=== PATIENT | male | born 1990 | race Caucasian/White ===

== ENCOUNTER 2023-08-12 09:01 | Emergency (ER) | payer OTHER, SELFPAY ==
[2023-08-12 09:04] VITALS: BP 145/100; PULSE 76; RESP 17; TEMP 36.8; O2SAT 98; BMI 23.7
--- NOTE | 2023-08-12 09:06 | HMH.EDGENADL ---
Discharge Plan Disposition Patient Disposition: Home, Self-Care Condition: Good Prescriptions Prescriptions: New doxycycline hyclate 100 mg capsule 100 mg PO BID 14 Days Qty: 28 0RF Referrals Follow up/Referrals: Austin Phillips DO [Staff Physician] - See instructions Provider,Referral, [Primary Care Provider] - See instructions Activity Restrictions/Add. Instructions Additional Instructions/Restrictions: Please follow-up with orthopedic doctor. Please take the antibiotics as directed. Please return with any new or worsening symptoms, particularly worsening pain, fever, pain elsewhere Clinical Impressions Clinical Impression: Cellulitis Qualifiers: Site of cellulitis: extremity Site of cellulitis of extremity: upper extremity Laterality: left Qualified Code(s): L03.114 - Cellulitis of left upper limb Stand Alone Forms Stand Alone Forms: Work/School Release Instructions Patient Instructions: DI for Skin Abscess Discharge ED Provider: Jagdeep Sargent General Adult HPI General Chief complaint: Skin/Abscess/Foreign Body Stated complaint: knot on lt elbow Time Seen by Provider: 08/12/23 09:06 History of Present Illness HPI narrative: The patient presents with a chief complaint of sudden onset elbow pain and swelling that started last night. They report initially noticing what seemed to be a pimple with a white head on the elbow. After squeezing it, yellow discharge was released. The patient woke up at 3:00 AM with significant arm swelling and throbbing pain. They deny any fever or chills but mention a similar spot on their back that swelled up, became tight, and also had discharge. This type of issue has not been experienced by the patient before. The pain is described as severe, and the patient states that it feels like their hand is going to sleep, accompanied by sensations of numbness and tingling. The patient denies any known medical conditions or regular medications. There is no recent history of elbow injuries reported, but the patient does mention a history of MRSA in their early teens. Related Data Previous Rx's Medication Instructions Recorded doxycycline hyclate 100 mg capsule 100 mg PO BID 14 days #28 caps 08/12/23 Allergies Allergy/AdvReac Type Severity Reaction Status Date / Time Penicillins [PENICILLINS] Allergy Unknown Verified 08/12/23 10:45 [facility] Disclaimer: The information contained in this section may have been updated after the patient was seen, as this information can be updated by other users. Social History Smoking Status: Current every day smoker alcohol intake: current current occupational status: employed Travel in the last 8 weeks: None ROS Obtained: Yes Systems reviewed as appropriate & no additional complaints except as documented As per HPI Physical Exam General General appearance: alert and in no apparent distress Head Head exam: atraumatic and normocephalic Eye Eye exam: Present normal appearance Neck Neck exam: Present normal inspection Chest Chest inspection: Present normal inspection and symmetric chest wall rise Respiratory Respiratory exam: Present normal lung sounds bilaterally; Absent respiratory distress Cardiovascular Cardiovascular exam: Present regular rate and normal rhythm Abdominal Exam Abdominal exam: Present soft Extremities Exam Extremities exam: Present other (Left elbow swelling, two 1/2 cm areas of erythema where patient pointed out preceding pimple-like lesion, range of motion within normal limits, distally neurovascularly intact however some transient paresthesias throughout forearm and hand, patient describes as positional) Neurological Exam Neurological exam: Present alert and oriented X3 Psychiatric Psychiatric exam: Present normal affect and normal mood Skin Skin exam: Present warm and dry Medical Decision Making Medical Records Medical records reviewed: Yes I reviewed the patient's medical records. Micheal
--- NOTE | 2023-08-12 10:09 | PC.NURSE ---
DR SIMON AT BEDSIDE
[2023-08-12 11:33] LABS: Basophils % 0.2 % (0.1-2.0); Eosinophils # 0.1 K/mm3 (0.0-0.4); Eosinophils % 0.7 % (0.1-12.0); Hematocrit 42.4 % (42.0-52.0); Lymphocytes # 1.8 K/mm3 (0.7-4.5); Lymphocytes % 17.1 % (10-50); Mean Corpuscular HGB Conc 33.2 g/dL (31.8-35.4); Mean Corpuscular Hemoglobin 31.6 pg (27.0-31.2); Mean Corpuscular Volume 95.4 fl (80-94); Mean Platelet Volume 8.7 fl (7.4-10.4); Monocytes # 0.5 K/mm3 (0.1-1.0); Monocytes % 5.1 % (1.7-9.3); Neutrophils % 76.8 % (37.0-80.0); Platelet Count 258 K/mm3 (142-424); Red Blood Count 4.44 M/mm3 (4.60-6.20); Red Cell Distribution Width 12.2 % (11.5-17.5); White Blood Count 10.4 K/mm3 (4.8-10.8)
[2023-08-12 11:44] LABS: C-Reactive Protein 1.1 mg/L (0-4)
[2023-08-12 12:19] LABS: Erythrocyte Sedimentation Rate 18 mm/hr (0-15)
[2023-08-12 13:11] VITALS: BP 145/100; PULSE 76; RESP 17; TEMP 36.8; O2SAT 98
[2023-08-18 21:22] LABS: Clarity,Fluid Hazy; Color,Fluid Yellow; Lymphocytes,Fluid 28; Macrophages,Fluid 48; Nucleated cells, Syn. Fluid 14074; Polys,Fluid 24; RBC,Fluid 7000
[2023-08-18 21:23] LABS: Eosinophils,Fluid 0
--- NOTE | 2023-08-19 09:43 | PC.NURSE ---
Body fluid resuls show Methicillin Resistant Staph aureus, pt DC on doxycycline, Dr. Merchant aware, no further action.
== END 2023-08-12 13:12 | disposition home or self-care (01) ==
PROVIDERS: Emergency Provider Emergency Medicine
DX: M25.422 Effusion, left elbow (principal); B95.62 Methicillin resistant Staphylococcus aureus infection as the cause of diseases classified elsewhere; L03.114 Cellulitis of left upper limb; F17.210 Nicotine dependence, cigarettes, uncomplicated; M25.522 Pain in left elbow
CPT/HCPCS: 10060; 85025; 85651; 86140; 87040; 87070; 87205; 89051; 99283

== ENCOUNTER 2023-08-14 03:59 | Emergency (ER) | payer OTHER, SELFPAY ==
[2023-08-14 04:01] VITALS: BP 126/82; PULSE 90; RESP 18; TEMP 36.6; O2SAT 98; BMI 22.4
--- NOTE | 2023-08-14 04:09 | XR_ITS ---
PROCEDURE INFORMATION: Exam: XR Left Elbow Exam date and time: 08/14/2023 4:34 AM Age: 33 years old Clinical indication: Pain; Swelling; Elbow; Left; Additional info: Swelling, redness, pain TECHNIQUE: Imaging protocol: Radiologic exam of the left elbow. Views: 3 or more views. COMPARISON: No relevant prior studies available. FINDINGS: Bones/joints: No acute fracture. No dislocation. No definite cortical destruction. No significant joint effusion. Soft tissues: Soft tissue swelling. IMPRESSION: Soft tissue swelling. Clinical correlation is needed.
--- NOTE | 2023-08-14 04:12 | HMH.EDGENADL ---
Discharge Plan Disposition Patient Disposition: Home, Self-Care Condition: Good Prescriptions Prescriptions: No Action doxycycline hyclate 100 mg capsule 100 mg PO BID 14 Days Qty: 28 0RF Referrals Follow up/Referrals: Austin Phillips DO [Staff Physician] - See instructions Provider,Referral, [Primary Care Provider] - See instructions Activity Restrictions/Add. Instructions Additional Instructions/Restrictions: You were evaluated in the emergency department today. You were given IV antibiotics here. Stop taking your oral antibiotics at home. Please follow-up with orthopedics as well as your primary care provider for further evaluation and management. You will need to call Dr. Phillips's office to schedule an appointment. Take Tylenol and ibuprofen at home as needed for pain. Return to the emergency department for new or worsening symptoms. Clinical Impressions Clinical Impression: Cellulitis of left elbow Stand Alone Forms Stand Alone Forms: Work/School Release Instructions Patient Instructions: DI for Cellulitis -- Adult, DI for Elbow Bursitis Discharge ED Provider: Sammi Merchant General Adult HPI General Chief complaint: Skin/Abscess/Foreign Body Stated complaint: Left elbow red,swollen with knot Time Seen by Provider: 08/14/23 04:09 History of Present Illness HPI narrative: This patient is a 33-year-old male presented to the emergency department for evaluation with concern for swelling, redness, and pain to his left elbow. He notes that he was evaluated here 2 days ago for similar symptoms, at which point he was diagnosed with cellulitis. Aspiration of fluid adjacent to the left elbow joint was performed which is still pending at this time. Per documentation in medical record, the patient had intact range of motion and concern for septic arthritis was low. Patient was discharged with prescription for doxycycline and instructions for orthopedics follow-up. He notes that he has had 2 doses of doxycycline, but the redness, pain, and warmth have increased. No systemic symptoms, such as fevers, nausea, vomiting, or other concerns noted. He does still have intact range of motion of his left elbow, though it is slightly painful. Related Data Previous Rx's Medication Instructions Recorded doxycycline hyclate 100 mg capsule 100 mg PO BID 14 days #28 caps 08/12/23 Allergies Allergy/AdvReac Type Severity Reaction Status Date / Time Penicillins [PENICILLINS] Allergy Unknown Verified 08/12/23 10:45 [facility] Disclaimer: The information contained in this section may have been updated after the patient was seen, as this information can be updated by other users. Social History Smoking Status: Current every day smoker alcohol intake: current current occupational status: employed Travel in the last 8 weeks: None ROS Obtained: Yes All systems reviewed & no additional complaints except as documented Physical Exam General General appearance: alert and in no apparent distress Head Head exam: atraumatic and normocephalic Eye Eye exam: Present normal appearance, PERRL and EOMI ENT ENT exam: Present normal exam, normal oropharynx, mucous membranes moist and normal external ear exam Neck Neck exam: Present normal inspection, full ROM and trachea midline; Absent tenderness Chest Chest inspection: Present normal inspection and symmetric chest wall rise; Absent tenderness Respiratory Respiratory exam: Present normal lung sounds bilaterally; Absent respiratory distress, wheezes, stridor or accessory muscle use Cardiovascular Cardiovascular exam: Present regular rate and normal rhythm Abdominal Exam Abdominal exam: Present soft; Absent distention, tenderness or guarding Extremities Exam Extremities exam: Present full ROM, tenderness, normal capillary refill, joint swelling and other (Swelling, erythema, and warmth to posterior aspect of the left
[2023-08-14 04:21] LABS: Basophils % 0.4 % (0.1-2.0); Eosinophils # 0.2 K/mm3 (0.0-0.4); Eosinophils % 2.2 % (0.1-12.0); Hematocrit 39.7 % (42.0-52.0); Hemoglobin 13.2 g/dL (14.1-18.0); Lymphocytes # 2.3 K/mm3 (0.7-4.5); Lymphocytes % 25.2 % (10-50); Mean Corpuscular HGB Conc 33.3 g/dL (31.8-35.4); Mean Corpuscular Hemoglobin 31.4 pg (27.0-31.2); Mean Corpuscular Volume 94.1 fl (80-94); Mean Platelet Volume 8.7 fl (7.4-10.4); Monocytes # 0.6 K/mm3 (0.1-1.0); Monocytes % 5.9 % (1.7-9.3); Neutrophils # 6.1 K/mm3 (1.8-7.8); Neutrophils % 66.3 % (37.0-80.0); Platelet Count 243 K/mm3 (142-424); Red Blood Count 4.22 M/mm3 (4.60-6.20); Red Cell Distribution Width 12.2 % (11.5-17.5); White Blood Count 9.3 K/mm3 (4.8-10.8)
[2023-08-14 04:24] LABS: Chloride 101 mmol/L (98-107); Sodium 138 mmol/L (136-145)
[2023-08-14 04:25] LABS: Potassium 3.7 mmoL/L (3.5-5.1)
[2023-08-14 04:27] LABS: Alanine Aminotransferase 34 U/L (12-78); Alkaline Phosphatase 49 U/L (38-126); Aspartate Amino Transferase 33 U/L (17-59); Bilirubin,Total 0.4 mg/dl (0.2-1.3); Blood Urea Nitrogen 18 mg/dl (9-20); Creatinine Clearance Estimated 127 mL/min (50-200); Estimated Glomerular Filt Rate 97 ml/min (>60); GFR (African American) 118 ML/MIN (>60)
[2023-08-14 04:28] LABS: Albumin Level 4.4 g/dl (3.5-5.0); Albumin/Globulin Ratio 1.4 (1.1-1.8); Anion Gap 5.7 mEq/L (5-15); Carbon Dioxide 35 mmol/L (22.0-30.0); Globulin 3.1 g/dL (1.3-3.2); Glucose 100 mg/dl (74-100); Total Protein,Serum 7.5 g/dl (6.3-8.2)
[2023-08-14 04:33] LABS: C-Reactive Protein 33.5 mg/L (0-4)
[2023-08-14 04:57] LABS: Erythrocyte Sedimentation Rate 19 mm/hr (0-15)
[2023-08-14 06:16] VITALS: BP 120/70; PULSE 89; RESP 16; TEMP 36.7; O2SAT 100
--- NOTE | 2023-08-16 14:06 | PC.NURSE ---
[id number] PRELIMINARY RECEIVED FROM [facility] IN LAB, UPDATED DR IRWIN. [id number] ATTEMPTED TO CALL PT AND FOLLOW-UP, NO ANSWER. MESSAGE LEFT
--- NOTE | 2023-08-16 16:41 | PC.NURSE ---
PT RETURNED CALL, REPORTS IT'S SPREADING DOWN MY ARM. PT INSTRUCTED TO RETURN TO ED FOR FURTHER EVALUATION
== END 2023-08-14 06:18 | disposition home or self-care (01) ==
PROVIDERS: Emergency Provider Emergency Medicine
DX: L03.114 Cellulitis of left upper limb (principal); M25.522 Pain in left elbow; F17.210 Nicotine dependence, cigarettes, uncomplicated
CPT/HCPCS: 73080; 80053; 85025; 85651; 86140; 96374; 99284; J0875

== ENCOUNTER 2024-05-07 15:58 | Outpatient (CLI) | payer OTHER, SELFPAY ==
[2024-05-17 12:40] LABS: Miscellaneous Test SCANNED IMAGE
== END 2024-05-07 23:59 | disposition home or self-care (01) ==
LOC: LAB 16:00
PROVIDERS: PCP Nurse Practitioner Family; Visit Provider Anesthesiology
DX: Z02.9 Encounter for administrative examinations, unspecified (principal)

== ENCOUNTER 2024-11-06 18:22 | Emergency (ER) | payer OTHER, SELFPAY ==
[2024-11-06 18:30] VITALS: BP 142/90; PULSE 90; RESP 20; TEMP 37.3; O2SAT 97; BMI 21.7
[2024-11-06] MEDS: ONDANSETRON 4MG/2ML VIAL 4 MG IV (18:57)
[2024-11-06] MEDS: ACETAMINOPHEN 1,000MG/100ML VIAL 1000 MG IV (18:57)
[2024-11-06] MEDS: 0.9 % SODIUM CHLORIDE 1000ML 1,000 ML 999 ML IV (18:58)
--- NOTE | 2024-11-06 18:58 | ED_ITS ---
<Statement entered by Jeannette Arnold MD - 11/06/24 23:04> I was consulted by the FATOU, and we discussed the complexity of the problems being addressed. I approved the treatment and management plan for this patient's care in the emergency department, thus performing a substantive portion of the medical decision making. Jeannette Arnold MD, GALILEO, FACEP Discharge Plan Disposition Patient Disposition: Home, Self-Care Condition: Good Prescriptions Prescriptions: New ondansetron HCl 4 mg tablet 4 mg PO Q8H PRN (Reason: nausea and vomiting) 5 Days Qty: 30 0RF promethazine-DM 6.25-15 mg/5 mL syrup 5 ml PO Q6H PRN (Reason: cough) Qty: 118 0RF Referrals Follow up/Referrals: Elver Salomon APRN [Primary Care Provider] - See instructions Activity Restrictions/Add. Instructions Additional Instructions/Restrictions: Increased within rest. Take Tylenol and ibuprofen for pain and fevers. Take medications as directed for nausea and cough. Please follow with PCP this week. Clinical Impressions Clinical Impression: Viral infection, Influenza Instructions Patient Instructions: DI for Influenza -- Adult Print Language Print Language: Hebrew Discharge ED Provider: Jeannette Arnold General Adult HPI General Chief complaint: Fever Stated complaint: fever,congestion,weakness Time Seen by Provider: 11/06/24 18:36 Mode of Arrival: Family Vehicle Source of Information: Patient and Significant Other Limitations: No Limitations Description of Symptoms (Recalled from ER Triage Doc. by RN): Pt c/o flu-like symptoms that began mildly last night and full blown this AM. States he has a burning cough , body aches, fever (t max 102), chills, nausea, and fatigue. Denies any SOA or chest pain. History of Present Illness HPI narrative: This is a 34-year-old male who presents to the ED today for complaint of flulike symptoms that began last night but worsened this morning. He has a cough, body aches, fever, chills, nausea but no vomiting and fatigue. Significant other is in the room and says that he had a temperature of 102.2 prior to arrival to the ED. She has given him Benadryl, Tylenol for fever. Related Data Previous Rx's ?Medication ?Instructions ?Recorded ondansetron HCl 4 mg tablet 4 mg PO Q8H PRN nausea and 11/06/24 vomiting 5 days #30 tabs promethazine-DM 6.25 mg-15 mg/5 mL 5 ml PO Q6H PRN cough #118 mL 11/06/24 oral syrup Allergies Allergy/AdvReac Type Severity Reaction Status Date / Time Penicillins (PENICILLINS) Allergy Unknown Verified 08/12/23 10:45 [facility] Disclaimer: The information contained in this section may have been updated after the patient was seen, as this information can be updated by other users. Social History Smoking Status: Current every day smoker alcohol intake: current current occupational status: employed Travel in the last 8 weeks: None Have you lived/traveled outside [place] in past 30 days?: No Contact w/someone who lives/traveled outside [place] past 30 days?: No Exposure to someone with infectious disease in past 14 days?: No Do you have a fever (greater than 100.4 F or 38 C)?: Yes Have you tested positive for COVID-19: No Exposed to someone with COVID-19 in past 14 days?: No Do you have a sore throat?: No Do you have a cough?: No Do you have any weakness?: Yes Do you have any diarrhea?: No Are you experiencing any unusual bleeding?: No Do you have any muscle aches/pain?: No Do you have any abdominal pain?: No Are you experiencing loss of taste or smell?: No ROS Obtained: Yes Systems reviewed as appropriate & no additional complaints except as documented Constitutional Constitutional: Reports as per HPI Physical Exam General General appearance: alert Head Head exam: atraumatic and normocephalic Eye Eye exam: Present PERRL and EOMI ENT ENT exam: Present normal oropharynx Neck Neck exam: Present full ROM and trachea midline Respiratory Respiratory exam: Present normal lung sounds bilaterally Cardiovascular Cardiovascular exam: Present regular rate, normal rhythm, normal heart sounds, +S1 and +S2 Abdominal Exam Abdominal exam: Present soft and normal bowel sounds Extremities Exam Extremities exam: Present full ROM and normal capillary refill Back Exam Back exam: Present normal inspection Neurological Exam Neurological exam: Present alert, oriented X3 and normal gait Skin Skin exam: Present warm, dry and intact Medical Decision Making Medical Records Screening: Per USPSTF and CDC recommendations, given the prevalence of disease in our region, it is our hospital?s policy to screen for HIV and viral Hepatitis for all patients aged 18 and over and those with ongoing risk factors. Micheal Inquiry Pt receiving controlled substance: No Micheal was queried for this patient: No Vital Signs: 11/06/24 18:30 Temperature 99.2 F Temperature Source Oral Pulse Rate [Right] 90 Respiratory Rate 20 Blood Pressure [Right Arm] 142/90 H Blood Pressure Mean [Right Arm] 107 Blood Pressure Source [Right Arm] Automatic Cuff 02 Sat by Pulse Oximetry 97 Oxygen Delivery Method Room Air Lab Data Lab Results 11/06/24 18:54: HCV Ab NATHALY w/Rflx PCR Qn Reactive, HIV Ag/Ab Combo Qual Negative 11/06/24 19:00: SARS-CoV-2 (PCR) Not detected, Influenza A Untype (PCR) Detected A, Influenza Type B (PCR) Not detected Orders (Tests/Meds): ED MEDICATIONS Discontinued Medications Generic Name Dose Route Start Last Admin Trade Name Freq PRN Reason Stop Dose Admin Acetaminophen 1,000 mg 11/06/24 18:41 11/06/24 18:57 Acetaminophen 1,000mg/100ml Vial IV 11/06/24 18:42 1,000 mg ONCE ONE Administration Sodium Chloride 1,000 mls @ 999 mls/hr 11/06/24 18:41 11/06/24 18:58 Sod Chlor 0.9% 1000ml Bag IV 11/06/24 19:41 999 mls/hr .Q1H1M ONE Administration Ondansetron HCl 4 mg 11/06/24 18:41 11/06/24 18:57 Ondansetron 4mg/2ml Vial IV 11/06/24 18:42 4 mg ONCE ONE Administration ORDERS Category Date Time Status HCV RNA PCR, Quant Stat Lab 11/06/24 18:54 Received HIV Combo Stat Lab 11/06/24 18:54 Completed Hepatitis C Ab Qual. W/ RFX Stat Lab 11/06/24 18:54 Completed Rapid PCR Covid and Flu A/B Stat Lab 11/06/24 19:00 Completed Medical Decision Narrative: Insert review patient is a 34-year-old male presenting to the emergency department for evaluation of throat pain, congestion, body aches and fever 102.2 prior to arrival. Patient has had bodyaches and fever since this morning. Patient is hemodynamically stable and appears to feel unwell with a low-grade temp at 99.2 upon arrival. Differential diagnosis includes viral illness, flu, COVID, among others. Workup will be conducted with COVID and flu swab as his clinical picture appears to be flu or viral in nature. Initial inventions include IV fluids and IV Tylenol for patient's symptoms. Initial workup reviewed by me is remarkable for the flu. Patient appears improved after IV Tylenol and fluids. Patient has been given discharge instructions and is safe for discharge home. Critical Care Critical Care Time Critical Care Time: No
[2024-11-06 19:06] LABS: Coronavirus 19, PCR Not Detected (NotDetected); Influenza B, PCR Not Detected (NotDetected)
[2024-11-06 19:31] LABS: Influenza A, PCR Detected (NotDetected)
[2024-11-06 20:07] LABS: HIV Combo NEGATIVE (Negative)
[2024-11-06 20:16] LABS: Hepatitis C Ab Qual. W/ RFX REACTIVE (Negative)
[2024-11-06 20:46] VITALS: BP 135/83; PULSE 75; RESP 17; TEMP 37.7; O2SAT 93
== END 2024-11-06 20:47 | disposition home or self-care (01) ==
PROVIDERS: Nurse Practitioner; Emergency Provider Student in an Organized Health Care Education/Training Program; PCP Nurse Practitioner Family
DX: J11.1 Influenza due to unidentified influenza virus with other respiratory manifestations (principal); B34.9 Viral infection, unspecified; R50.9 Fever, unspecified; R05.9 Cough, unspecified; M79.10 Myalgia, unspecified site; R11.0 Nausea; R53.83 Other fatigue; Z72.0 Tobacco use
CPT/HCPCS: 86803; 87389; 87522; 87636; 96361; 96374; 96375; 99283; J0131; J2405; J7030

== ENCOUNTER 2024-12-28 19:36 | Emergency (ER) | payer BC, SELFPAY ==
--- NOTE | 2024-12-28 21:59 | ED_ITS ---
<Statement entered by Sammi Merchant DO - 12/28/24 23:46> I was consulted by the FATOU, and we discussed the complexity of the problems being addressed. I approved the treatment and management plan for this patient's care in the emergency department, thus performing a substantive portion of the medical decision making. Patient agreeable to follow-up very closely with ophthalmology in 24 hours given residual rust ring. Procedure: After informed consent, anesthetized the eye with tetracaine and removed metallic foreign body with a blunt tipped needle. I attempted removal of residual rust ring, however was unsuccessful. Patient tolerated this well with no immediate complication. Sammi Merchant DO Discharge Plan Disposition Patient Disposition: Home, Self-Care Chief Complaint: Eye Problems Prescriptions Prescriptions: No Action ondansetron HCl 4 mg tablet 4 mg PO Q8H PRN (Reason: nausea and vomiting) 5 Days Qty: 30 0RF promethazine-DM 6.25-15 mg/5 mL syrup 5 ml PO Q6H PRN (Reason: cough) Qty: 118 0RF Referrals Follow up/Referrals: Elver Salomon APRN [Primary Care Provider] - See instructions Hardeep Bullock OD [Referring] - See instructions Activity Restrictions/Add. Instructions Additional Instructions/Restrictions: Please follow-up with eye doctor in the upcoming days, please utilize ophthalmic solution/cream 4 times daily for 5 days or until eye doctor follow-up. Please return to the emergency department any worsening signs or symptoms to include decreased vision. Clinical Impressions Clinical Impression: Metal foreign body in eye region, Corneal rust ring of left eye Instructions Patient Instructions: DI for Corneal Abrasion Print Language Print Language: Japanese Discharge ED Provider: Sammi Merchant General Adult HPI General Stated complaint: AO 12/28/24 FB in left eye Time Seen by Provider: 12/28/24 21:17 Mode of Arrival: Ambulatory Source of Information: Patient Limitations: No Limitations History of Present Illness HPI narrative: 34-year-old male presents to the emergency department with a foreign body in the left eye, patient states approximately 2 hours ago he was working on his truck , when he felt a piece of metal going to his eye, he denies any visual disturbance or decrease in visual acuity. He endorses irritation redness and tearing, denies any real overt pain. Denies any light sensitivity,, denies any headache fever chills chest pain shortness of breath nausea vomiting, abdominal pain constipation diarrhea, patient has no other real relevant past medical history except for current everyday smoking, occasional alcohol use, and curre ntly on Suboxone therapy, denies any drug use. Initial triage vitals are grossly unremarkable. Of note patient does not wear contacts. Onset (ago): hour(s) Related Data Previous Rx's ?Medication ?Instructions ?Recorded ondansetron HCl 4 mg tablet 4 mg PO Q8H PRN nausea and 11/06/24 vomiting 5 days #30 tabs promethazine-DM 6.25 mg-15 mg/5 mL 5 ml PO Q6H PRN cough #118 mL 11/06/24 oral syrup Allergies Allergy/AdvReac Type Severity Reaction Status Date / Time Penicillins (PENICILLINS) Allergy Unknown Verified 08/12/23 10:45 [facility] Disclaimer: The information contained in this section may have been updated after the patient was seen, as this information can be updated by other users. Social History Smoking Status: Unknown if ever smoked alcohol intake: current current occupational status: employed Travel in the last 8 weeks: None ROS Obtained: Yes All systems reviewed & no additional complaints except as documented Physical Exam General General appearance: alert and in no apparent distress Head Head exam: atraumatic and normocephalic Eye Eye exam: Present PERRL, EOMI, conjunctival injection and other (There is an obvious rust ring/metallic foreign body in the 330 or 4 o'clock position on the patient's cornea); Absent normal appearance ENT ENT exam: Present mucous membranes moist Neck Neck exam: Present normal inspection Chest Chest inspection: Present normal inspection and symmetric chest wall rise Respiratory Respiratory exam: Present normal lung sounds bilaterally; Absent respiratory distress Cardiovascular Cardiovascular exam: Present regular rate and normal rhythm Abdominal Exam Abdominal exam: Present soft; Absent tenderness Extremities Exam Extremities exam: Present normal inspection Neurological Exam Neurological exam: Present alert and oriented X3 Psychiatric Psychiatric exam: Present normal affect Skin Skin exam: Present warm and dry Medical Decision Making Medical Records Medical records reviewed: Yes I reviewed the patient's medical records. Screening: Per USPSTF and CDC recommendations, given the prevalence of disease in our region, it is our hospital?s policy to screen for HIV and viral Hepatitis for all patients aged 18 and over and those with ongoing risk factors. Micheal Inquiry Pt receiving controlled substance: No Orders (Tests/Meds): ED MEDICATIONS Generic Name Dose Route Start Last Admin Trade Name [place] PRN Reason Stop Dose Admin Tetanus/Reduced Diphtheria/Acell Pertussis 0.5 ml 12/28/24 21:58 Tet/Diphth/Pert-Adult 0.5ml Syringe IM 12/28/24 21:59 .ONCE ONE Medical Decision Narrative: 34-year-old male presents the emergency department with a foreign body to left eye, differential diagnose include but not limited to, traumatic iritis, foreign body of eye, corneal abrasion, corneal ulcer, rust ring. I along with the attending physician Dr. Merchant attempted to get the patient's metallic foreign body, we attempted utilizing tetracaine, as well as fluorescein dye test, there was no corneal dye uptake or no evidence of corneal abrasion, there was a rust ring as described in physical exam at approximately the 330/4 PM position on the patient's cornea, attempt was made with wet Q-tip as well as irrigation solution and blunt tip 18-gauge needle to remove the metallic foreign body/rust ring, however was unsuccessful. There were several pieces of the rust ring/metallic foreign body there were able to be removed, but still rust ring remains. Patient is unsure of his tetanus prophylaxis, thus will update Tdap here in the emergency department, will give the patient erythromycin ophthalmic 3 to 5 days 4 times daily solution to use for corneal abrasion. 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 Critical Care Critical Care Time Critical Care Time: No
[2024-12-28 22:01] VITALS: BP 125/100; PULSE 61; RESP 18; TEMP 36.6; O2SAT 99; BMI 21.4
[2024-12-28 22:25] VITALS: BP 125/100; PULSE 57; RESP 18; TEMP 36.7; O2SAT 97
[2024-12-28] MEDS: TET/DIPHTH/PERT-ADULT 0.5ML SYRINGE 0.5 ML IM (22:30)
[2024-12-28] MEDS: ERYTHROMYCIN BASE 1 GM OINT...G. OP (22:30)
[2024-12-28] MEDS: FLUORESCEIN SODIUM 1MG STRIP 1 MG OP (22:30)
== END 2024-12-28 22:42 | disposition home or self-care (01) ==
PROVIDERS: Emergency Provider Emergency Medicine; PCP Nurse Practitioner Family
DX: T15.92XA Foreign body on external eye, part unspecified, left eye, initial encounter (principal); H18.892 Other specified disorders of cornea, left eye; Z23 Encounter for immunization; W44.E9XA Other non-magnetic metal objects entering into or through a natural orifice, initial encounter
CPT/HCPCS: 65220; 90471; 99283; 90715

== ENCOUNTER 2025-02-17 17:16 | Outpatient (CLI) | payer BC, SELFPAY ==
[2025-02-17 19:56] LABS: Coronavirus 19, PCR Not Detected (NotDetected); Influenza A, PCR Not Detected (NotDetected); Influenza B, PCR Not Detected (NotDetected); Lyme Ab IgM CIA ND; Lyme IgG CIA ND
--- OUTSIDE RECORDS SUMMARY | 2025-02-18 12:29 | XMS_ITS | Data Portability ---
Author Organization [facility] Address [address] [place] [address] Assessment No assessment recorded. Plan of Treatment Reminders Order Date Submit Date Provider Last Modified By Organization Details Last Modified Time Details Appointments None recorded. Lab rapid flu (A+B) 2023 [facility], [address] [place] [address], [id number], 4 11:20:42 rapid SARS CoV + SARS CoV 2 Ag, QL IA, respiratory specimen 2023 [facility], [address] [place] [address], [id number], 4 11:20:40 rapid strep group A, throat 2023 [facility], [address] [place] [address], [id number], 11:20:40 Referral None recorded. Procedures None recorded. Surgeries None recorded. Imaging None recorded. Medication Orders ceftriaxone 1 gram solution for injection 2023 cbuckler Not available 10:33:32 clindamycin HCl 300 mg capsule 2023 [facility], [address] [place] [address], [id number], 10:18:17 Tamiflu 75 mg capsule 2023 024 [id number], [address] [facility] [address] [place], [id number], 10:04:08 Patient TargetsNo targets recorded. Patient Instructions Encounter Date Encounter Id Patient Instructions Last Modified By Organization Details Last Modified Time 06/22/2024 [id number] abscessed tooth: care instructions efryman Not available 06/22/2024 10:18:03 Reason for Referral None Reported. Results Created Date Observation Date Name Description Value Unit Range Abnormal Flag Note LastModifiedBy Organization Detail LastModifiedTime 10/16/1910/16/2023 rapid strep group A, throa t Strep negati ve Not Available [address], [address], 10/16/2023 10:01:15 10/16/19 24 10/16/2023 rapid strep group A, throa t Culture No Not Available [address], [address], 10/16/2023 10:01:15 10/16/19 24 10/16/2023 rapid SARS CoV + SARS CoV 2 Ag, QL IA, respi rator y speci men SARS CoV antigen Negati ve Not Available [address], [address], 10/16/2023 10:01:05 10/16/19 24 10/16/2023 rapid flu (A+B) Flu positi ve Not Available [address], [address], 10/16/2023 10:00:46 10/16/19 24 10/16/2023 rapid flu (A+B) Type B Not Available [address], [address], 10/16/2023 10:00:46 Result Notes None recorded. Problems No Known Problems Medical Equipment None Reported. Allergies No known drug allergies Medications Name Sig Start Date Stop Date Status Note LastModified by Organization Details LastModified Time doxycycline hyclate 100 mg capsule TAKE 1 CAPSULE BY MOUTH TWICE DAILY FOR 14 DAYS 10/16 completed Not Available Not Available Not Available clindamycin HCl 300 mg capsule Take 1 capsule 3 times a day by oral route for 7 days. active Not Available Not Available No t Available ceftriaxone 1 gram solution for injection Take 1 g by injection route. 2023 active Not Available Not Available Not Avai lable oseltamivir 75 mg capsule TAKE 1 CAPSULE BY MOUTH TWICE DAILY FOR 5 DAYS 06/22 completed Not Available Not Available Not Available buprenorphi ne 8 mg-naloxone [address] 1 tablet every day by sublingua l route for 14 days. active Not Available Not Available No t Available Mavyret 100 mg-40 mg tablet 06/22 completed Not Available Not Available Not Available Vitals Date Recorded Body temperature Body weight Heart rate Oxygen saturation Oxygen saturation in Arterial blood by Pulse oximetry Respiratory rate Body mass index (BMI) Body height Systolic blood pressure Diastolic blood pressure Provider Name and Address Organization Details Last Updated DateTime 4 97.9 [degF] 67887.3 3 g 72 /min 98 % 98 % 18 /min 22.5 kg/m2 182.88 cm 124 mm[Hg] 76 mm[Hg] Pratima Epps [place] - [facility] 4 10:27:16 Date Recorded Body height Body mass index (BMI) Body weight Body temperature Heart rate Oxygen saturation Oxygen saturation in Arterial blood by Pulse oximetry Respiratory rate Systolic blood pressure Diastolic blood pressure Provider Name and Address Organization Details Last Updated DateTime 4 182.88 cm 22.7 kg/m2 42347.6 3 g 98 [degF] 61 /min 99 % 99 % 20 /min 110 mm[Hg] 70 mm[Hg] Charito Dyer [place] - [facility] 4 10:08:24 Social History Question Answer Notes LastModified by Organizat ion Details LastModified Time Tobacco Smoking Status Current Every Day Smoker Pratima whitley, [place] - [facility] 10/16/2023 10:32:30 Do You Have An Advance Directive? No Information not available 10/16/2023 Are You Blind Or Do You Have Difficulty Seeing? No Information not available 10/16/2023 What Is Your Level Of Caffeine Consumption? Heavy Information not available 10/16/2023 Are You Deaf Or Do You Have Serious Difficulty Hearing? No Information not available 10/16/2023 What Type Of Diet Are You Following? REGULAR Information not available 10/16/2023 What Is The Highest Grade Or Level Of School You Have Completed Or The Highest Degree You Have Received? [id number] Information not available 10/16/2023 Have There Been Any Changes To Your Family Or Social Situation? No Information no t available 10/16/2023 What Is The Fluoride Status Of Your Home? Unknown Information not available 10/16/2023 Do You Have A Medical Power Of Official Court Reporter? No Information not available 10/16/2023 What Was The Date Of Your Most Recent Tobacco Screening? 10/16/2023 Information not available 10/16/2023 What Is Your Current Pack Years? 10-19packyea rs Information not available 10/16/2023 What Is Your Relationship Status? Single Information not available 10/16/2023 Do You Have Smoke And Carbon Monoxide Detectors In Your Home? Yes Information not available 10/16/2023 At What Age Did You Start Smoking Tobacco? 16 Information not available 10/16/2023 How Much Tobacco Do You Smoke? 0.5 PPD Information not available 10/16/2023 Has Tobacco Cessation Counseling Been Provided? No Information not available 10/16/2023 How Many Years Have You Smoked Tobacco? 17 Information not available 10/16/2023 Do You Have Difficulty Walking Or Climbing Stairs? No Information not available 10/16/2023 Sex: Male Functional Status Question Answer Note LastModified by Organizat ion Details LastModified Time How many times per week do you consume alcohol? 1-2 times per week Information not available 10/16/2023 Do you use any illicit or recreational drugs? No Information not available 10/16/2023 Do you or have you ever used any other forms of tobacco or nicotine? No Information not available 10/16/2023 What is your level of alcohol consumption? Occasional Information not available 10/16/2023 Are you currently employed? Yes Information not available 10/16/2023 Do you have transportation difficulties? No Information not available 10/16/2023 Are you able to walk? YESWOREST Information not available 10/16/2023 Do you have difficulty doing errands alone? No Information not available 10/16/2023 Are you able to care for yourself? Yes Information n ot available 10/16/2023 What is your occupation? [employer] Information not available 10/16/2023 Do you have difficulty dressing or bathing? No Information not available 10/16/2023 What is your exercise level? None Information not available 10/16/2023 Mental Status Question Answer Note LastModified by Organizat ion Details LastModified Time Do you feel stressed (tense, restless, nervous, or anxious, or unable to sleep at night)? [id number] Information not available 10/16/2023 Do you have difficulty concentrating, remembering or making decisions? No Information no t available 10/16/2023 Family History Relationship Description Onset Age of this Age Resolved Age Notes LastModified by Organization Details LastModified Time Father No current problems or disability bstears Not available 10/16 10:31:32 Mother No current problems or disability bstears Not available 10/16 10:31:32 Medical History No medical history recorded. Immunizations Vaccine Type Date Status Note Provider Nam e and Address Organization Details Recorded Time COVID-19, mRNA, LNP-S, PF, 100 mcg/0.5mL dose or 50 mcg/0.25mL dose 1 completed Pratimahoa Lindquists null, [place] - [facility] 10/16/2023 09:59:13 COVID-19, mRNA, LNP-S, PF, 100 mcg/0.5mL dose or 50 mcg/0.25mL dose 1 completed Pratima Stears null, [place] - [facility] 10/16/2023 09:59:13 Tdap 6 completed Pratima Stears null, [place] - [facility] 10/16/2023 09:59:13 Td (adult), 2 Lf tetanus toxoid, preservative free, adsorbed 2 completed Pratima Stears null, [facility] 10/16/2023 09:59:13 Hep B, adolescent or pediatric 2 completed Pratima Stears null, [facility] 10/16/2023 09:59:13 Hep B, adolescent or pediatric 2 completed Pratima Stears null, [facility] 10/16/2023 09:59:13 Hep B, adolescent or pediatric 2 completed Pratima Stears null, [facility] 10/16/2023 09:59:14 Past Encounters Encounter ID Performer Location Encounter Start Date Encounter Closed Date Diagnosis/Indication Diagnosis SNOMED-CT Code Diagnosis ICD10 Code Diagnosis Note [id number] Elver Salomon APRN [address] [address] 10/16/2023 09:48:50 10/16/2023 11:17:54 Influenza caused by Influenza B virus 16001365 J10.1 no sign of a bacterial infection. likely viral. viruses can take 7-14 days to run their course. nasal saline and bulb syringe to remove nasal drainage to help with congestion . monitor temp. Tylenol or Motrin as needed for pain or fever. encourage fluids, water, Gatorade, power aide, Pedialyte if /tod dler/child warm salt water gargles warm fluids sore throat lozenges sleep elevated humidifier /vaporizer follow up immediatel y for new or worsening symptoms or no noticeable improvemen t over the next 48-72 hours [id number] Elver Salomon APRN [address] [address] 06/22/2024 09:57:11 06/22/2024 10:25:02 Dental abscess 441234567 K04.7 follow up with dentist [facility] Health Concerns Section Related Observation LastModified by Organization Detai ls LastModified Time None Recorded Concern Status LastModified by Organization Details LastModified Time None Recorded Advance Directives Directive N: Payers Insurance Date Sequence Insurance Name Policy Number Policy White Covered Member ID White Member ID Guarantor Name 01/07/2024 [place] [employer] [place]ID[place]NEAL Romeroe [id number] Italo Darby 06/29/2024 1 [employer] (HMO) Italo Nuñez Nicke [id number] Italo Darby 06/22/2024 2 [facility] PLAN-[place] (MEDICAID REPLACEMENT - HMO) OTF [employer] [id number] Italo Wilner Notes Date Note Type Note Provider Name and Address Organization Details Recorded Time 10/16/2023 text/html 33 year old male who presents to the office today with concerns ofcough, congestion, body aches, headache, sore throat. father has covid Elver Salomon, KRISTAN [address], [place], [address], [facility] - [facility] 10/16/2023 11:23:25 06/22/2024 text/html 34 yr old male presents for facial swelling related to a dental abscess on the left bottom incisor. The toothache started yesterday and the swelling started this morning when he woke up. He doesn't have a dentist right now. He is trying to get insurance to get the rest of his teeth pulled. Elver Salomon APRN [address], [place], [address], [facility] - [facility] 06/22/2024 10:24:53
--- OUTSIDE RECORDS SUMMARY | 2025-02-18 12:29 | XMS_ITS | Clinical Summary ---
Author Organization Healthcare Address [address] [place] [address] Care Team Providers Care Embedded Software Design Engineer Name Role Phone Pedrito Chiu MD Primary Care Provider [phone] Allergies No known active allergies Social History Tobacco Use Types Packs/Day Years Used Date Smoking Tobacco: Never Assessed Sex and Gender Information Value Date Recorded Sex Assigned at Not on file Legal Sex Male 7:56 PM EDT Gender Identity Not on file Sexual Orientation Not on file Last Filed Vital Signs Vital Sign Reading Time Taken Comments Blood Pressure 132/86 08/20/2023 4:55 AM EST Pulse 75 08/20/2023 4:55 AM EST Temperature 36.8 C (98.3 F) 08/20/2023 4:55 AM EST Respiratory Rate 20 08/20/2023 4:55 AM EST Oxygen Saturation 98% 08/20/2023 4:55 AM EST Inhaled Oxygen Concentration - - Weight 99.8 kg (220 lb) 08/20/2023 2:54 AM EST Height 185.4 cm (6' 1 ) 08/20/2023 2:54 AM EST Body Mass Index 29.03 08/20/2023 2:54 AM EST Plan of Treatment Not on file Insurance [facility] MEDICAID Care Teams Embedded Software Design Engineer Relationship Specialty Start Date End Date Pedrito Chiu MD [address] [place] [address] PCP - General 01/26/21
[2025-02-19 12:11] LABS: Lyme Ab CIA Negative (Negative)
== END 2025-02-17 23:59 | disposition home or self-care (01) ==
LOC: LAB.DROPOF 02-18 12:27
PROVIDERS: PCP Student in an Organized Health Care Education/Training Program; Visit Provider Student in an Organized Health Care Education/Training Program
DX: J11.1 Influenza due to unidentified influenza virus with other respiratory manifestations (principal)
CPT/HCPCS: 86618; 87636

== ENCOUNTER 2025-02-24 15:29 | Outpatient (CLI) | payer BC, SELFPAY ==
--- OUTSIDE RECORDS SUMMARY | 2025-02-24 15:33 | XMS_ITS | Clinical Summary ---
Author Organization Healthcare Address [address] [place] [address] Care Team Providers Care Exhibition Designer Name Role Phone Pedrito Chiu MD Primary Care Provider [phone] Allergies No known active allergies Social History [...] Plan of Treatment Not on file Insurance [facility] MEDICAID Care Teams Exhibition Designer Relationship Specialty Start Date End Date Pedrito Chiu MD [address] [place] [address] PCP - General 01/26/21
[2025-02-24 18:07] LABS: Alanine Aminotransferase 44 U/L (12-78); Albumin Level 4.5 g/dl (3.5-5.0); Albumin/Globulin Ratio 1.9 (1.1-1.8); Alkaline Phosphatase 63 U/L (38-126); Anion Gap 8.1 mEq/L (5-15); Aspartate Amino Transferase 43 U/L (17-59); Bilirubin,Total 0.5 mg/dl (0.2-1.3); Blood Urea Nitrogen 21 mg/dl (9-20); Calcium 9.5 mg/dl (8.4-10.2); Carbon Dioxide 31 mmol/L (22.0-30.0); Chloride 105 mmol/L (98-107); Estimated Glomerular Filt Rate 97 ml/min (>60); GFR (African American) 117 ML/MIN (>60); Globulin 2.4 g/dL (1.3-3.2); Glucose 66 mg/dl (74-100); Potassium 5.1 mmoL/L (3.5-5.1); Sodium 139 mmol/L (136-145); Total Protein,Serum 6.9 g/dl (6.3-8.2)
[2025-02-25 05:09] LABS: Hepatitis C Antibody Reactive (Non Reactive)
[2025-02-26 22:17] LABS: Hepatitis C Genotype 1a (.)
== END 2025-02-24 23:59 | disposition home or self-care (01) ==
LOC: LAB 15:30
PROVIDERS: PCP Nurse Practitioner Family; Visit Provider Nurse Practitioner Family
DX: B18.2 Chronic viral hepatitis C (principal)
CPT/HCPCS: 36415; 80053; 87380; 87522

== ENCOUNTER 2025-03-12 09:04 | Outpatient (CLI) | payer BC, SELFPAY ==
--- OUTSIDE RECORDS SUMMARY | 2025-03-12 09:10 | XMS_ITS | Data Portability ---
Author Organization [facility] Address [address] [place] [address] Assessment No assessment recorded. Plan of Treatment Reminders Order Date Submit Date Provider Last Modified By Organization Details Last Modified Time Details Appointments None recorded. Lab rapid flu (A+B) 2023 024 [facility], [address] [place] [address], [id number], 4 11:20:42 rapid SARS CoV + SARS CoV 2 Ag, QL IA, respirator y specimen 2023 024 [facility], [address] [place] [address], [phone], 4 11:20:40 rapid strep group A, throat 2023 024 [facility], [address] [place] [address], [address], 4 11:20:40 Referral gastroente rologist referral - STAT, history of congenital malrotatio n of intestines 2024 025 ROB Nicole MD, [address], [place], [address], 5 09:31:11 Procedures None recorded. Surgeries None recorded. Imaging None recorded. Medication Orders Miralax 17 gram/dose oral powder [facility], [address], [id number], 5 17:35:34 ceftriaxon e 1 gram solution for injection 2023 bstears Not available 16:47:06 clindamyci n HCl 300 mg capsule 2023 [facility], [address], [id number], 5 16:58:59 Tamiflu 75 mg capsule 2023 [facility][id number], [address], [id number], 10:04:08 Patient TargetsNo targets recorded. Patient Instructions Encounter Date Encounter Id Patient Instructions Last Modified By Organization Details Last Modified Time 06/22/2024 [id number] abscessed tooth: care instructions [place] Not available 06/22/2024 10:18:03 Reason for Referral Manager Mass Referral for Hematochezia STAT, history of congenital malrotation of intestines Referring Physician: Elver Salomon, Family Medicine, Encounter Date: 02/22/2025 Results Created Date Observation Date Name Description Value Unit Range Abnormal Flag Note LastModifiedBy Organization Detail LastModifiedTime 10/16/1910/16/2023 rapid strep group A, throa t Strep negati ve Not Available [address], [address], 10/16/2023 10:01:15 10/16/19 24 10/16/2023 rapid strep group A, throa t Culture No Not Available [address], [address], 10/16/2023 10:01:15 10/16/19 24 10/16/2023 rapid SARS CoV + SARS CoV 2 Ag, QL IA, respi rator y speci men SARS CoV antigen Negati ve Not Available [address], [address], 10/16/2023 10:01:05 10/16/19 24 10/16/2023 rapid flu (A+B) Flu positi ve Not Available [address], [address], 10/16/2023 10:00:46 10/16/19 24 10/16/2023 rapid flu (A+B) Type B Not Available [address], [address], 10/16/2023 10:00:46 Result Notes None recorded. Problems Name Problem SNOMED Code Status Onset Date Resolution Date Notes Provider Name and Address Organization Details Recorded Time Congenital malrotation of intestine 83074134 Active 2024 intestio nal, surgery at age 18 [place] - [facility] 16:56:09 Problem Notes None recorded. Medical Equipment None Reported. Allergies No known drug allergies Medications Name Sig Start Date Stop Date Status Note LastModified by Organization Details LastModified Time Miralax 17 gram/dose oral powder Take 17 g every day by oral route for 14 days. 2024 active Not Available Not Available Not Avai lable promethazin e-DM 6.25 mg-15 mg/5 mL oral syrup TAKE 5 ML BY MOUTH EVERY 6 HOURS NEEDED FOR COUGH 02/22 completed Not Available Not Available Not Available doxycycline hyclate 100 mg capsule TAKE 1 CAPSULE BY MOUTH TWICE DAILY FOR 14 DAYS 10/16 completed Not Available Not Available Not Available clindamycin HCl 300 mg capsule Take 1 capsule 3 times a day by oral route for 7 days. 02/22 completed Not Available Not Available Not Available ceftriaxone 1 gram solution for injection Take 1 g by injection route. 02/22 completed Not Available Not Available Not Available oseltamivir 75 mg capsule TAKE 1 CAPSULE BY MOUTH TWICE DAILY FOR 5 DAYS 06/22 completed Not Available Not Available Not Available bromphenira mine-pseudo ephedrine-D M 2 mg-30 mg-10 mg/5 mL oral syrup TAKE 5 ML EVERY 4 TO 6 HOURS NEEDED FOR COLD SYMPTOMS active Not Available Not Available No t Available doxycycline hyclate 100 mg tablet TAKE 1 TABLET BY MOUTH 2 TIMES A DAY active Not Available Not Available No t Available buprenorphi ne 8 mg-naloxone 2 mg sublingual tablet dissolve 2 tablets under the tongue once a day active Not Available Not Available No t Available moxifloxaci n 0.5 % eye drops INSTILL 1 DROP INTO LEFT EYE 4 TIMES DAILY 02/21 completed Not Available Not Available Not Available Mavyret 100 mg-40 mg tablet 06/22 completed Not Available Not Available Not Available Vitals Date Recorded Body temperature Body weight Heart rate Oxygen saturation Oxygen saturation in Arterial blood by Pulse oximetry Respiratory rate Body mass index (BMI) Body height Systolic And Diastolic Provider Name and Address Organization Details Last Updated DateTime 4 97.9 [degF] 19356.3 3 g 72 /min 98 % 98 % 18 /min 22.5 kg/m2 182.88 cm 124/76 mm[Hg] Pratima Epps [place] - [facility] 4 10:27:16 Date Recorded Body height Respiratory rate Body mass index (BMI) Body weight Body temperature Heart rate Oxygen saturation Oxygen saturation in Arterial blood by Pulse oximetry Systolic And Diastolic Provider Name and Address Organization Details Last Updated DateTime 5 182.88 cm 18 /min 23.7 kg/m2 92524.6 6 g 98 [degF] 76 /min 97 % 97 % 118/64 mm[Hg] Pratima Epps [place] - [facility] 5 16:52:01 Date Recorded Body height Body mass index (BMI) Body weight Body temperature Heart rate Oxygen saturation Oxygen saturation in Arterial blood by Pulse oximetry Respiratory rate Systolic And Diastolic Provider Name and Address Organization Details Last Updated DateTime 4 182.88 cm 22.7 kg/m2 58916.6 3 g 98 [degF] 61 /min 99 % 99 % 20 /min 110/70 mm[Hg] Charito Dyer [place] - [facility] 10:08:24 Social History Question Answer Notes LastModified by Organizat ion Details LastModified Time Tobacco Smoking Status Current Every Day Smoker Pratima Mich whitley, [facility] 10/16/2023 10:32:30 Do You Have An Advance [...] Or The Highest Degree You Have Received? [id number] Information not available 10/16/2023 Have There Been Any Changes To Your Family Or Social Situation? No Information no t available 10/16/2023 What Is The Fluoride Status Of Your Home? Unknown Information not available 10/16/2023 Do You Have A Medical Power Of Mainspring Former Brace End? No Information not available 10/16/2023 What Was The Date Of Your Most Recent Tobacco Screening? 02/22/2025 Information not available 02/22/2025 What Is Your Current Pack Years? 10-19packyea [...] How Many Years Have You Smoked Tobacco? 18 Information not available 02/22/2025 Do You Have Difficulty Walking Or Climbing [...] Status Question Answer Note LastModified by Organizat [employer] Details LastModified Time Do you feel stressed (tense, restless, nervous, or anxious, or unable to sleep at night)? [id number] Information not available 10/16/2023 Do you have [...] Immunizations Vaccine Type Date Status Note Provider Elías kebede and Address Organization Details Recorded Time Tdap 5 completed Not Available [facility] 02/22/2025 16:38:26 COVID-19, mRNA, LNP-S, PF, 100 mcg/0.5mL dose or 50 mcg/0.25mL dose 1 completed Pratima Stears null, [place] - [facility] 10/16/2023 09:59:13 COVID-19, mRNA, LNP-S, PF, 100 mcg/0.5mL dose or 50 mcg/0.25mL dose 1 completed Pratima Stears null, [place] - [facility] 10/16/2023 09:59:13 Tdap 6 completed Pratima Stears null, [place] - [facility] 10/16/2023 09:59:13 Td (adult), 2 Lf tetanus toxoid, preservative free, adsorbed 2 completed Pratima Stears null, [place] - [facility] 10/16/2023 09:59:13 Hep B, adolescent or pediatric 2 completed Pratima Stears [place], [place] - [facility] 10/16/2023 09:59:13 Hep B, adolescent or pediatric 2 completed Pratima Stears [place], [place] - [facility] 10/16/2023 09:59:13 Hep B, adolescent or pediatric 2 completed Pratima Stears null, [place] - [facility] 10/16/2023 09:59:14 Past Encounters Encounter ID Performer Location Encounter Start Date Encounter Closed Date Diagnosis/Indication Diagnosis SNOMED-CT Code Diagnosis ICD10 Code Diagnosis Note [id number] KRISTAN Meier [address] [address] 10/16/2023 09:48:50 10/16/2023 11:17:54 Influenza caused by Influenza B virus 62246020 J10.1 no sign of a bacterial infection. [...] improvemen t over the next 48-72 hours [id number] Eugonda Fryman, [employer] [address] [address] 06/22/2024 09:57:11 06/22/2024 10:25:02 Dental abscess 587935183 K04.7 follow up with dentist [facility] [id number] Elver Salomon APRN [address] [address] 02/22/2025 16:33:11 02/22/2025 17:24:10 Chronic constipation 248244961 K59.09 Hematochezia 867825066 K 92.1 if worsen or no improvemen t go to ed kristen Finding of sensation of abdomen 823694743 R10.9 Health Concerns Section Related Observation LastModified by Organization Detai ls LastModified Time None Recorded Concern Status LastModified by Organization Details LastModified Time None Recorded Advance Directives Directive N: Payers Insurance Date Sequence Insurance Name Policy Number Policy White Covered Member ID White Member ID Guarantor Name 02/22/2025 [place] [facility] WRAP BILLING (MEDICAID) [facility] Italo Darby [id number] Italo roberto 02/22/2025 1 [place] [id number] Italo Darby [id number] Italo roberto 02/22/2025 1 [facility] [facility] Italo Darby [id number] Italo roberto 02/22/2025 2 [facility] ([place] - [place]MO) [facility] Italo Darby [id number] Italo Darby Notes Date Note Type Note Provider Name and Address Organization Details Recorded Time 10/16/2023 text/html 33 year old male who presents to the office today with concerns ofcough, congestion, body aches, headache, sore throat. father has covid Elver Salomon APRN [address], [place], [address], [place] - [facility] 10/16/2023 11:23:25 06/22/2024 text/html 34 [...] pulled. Elver Salomon APRN [address], [place], [address], [place] - [facility] 06/22/2024 10:24:53 02/22/2025 text/html 34 year old male who presents to the office today with concerns ofblood streaking in stool, abdominal pain, nausea before and after bowel movement bowel movement only once per week, stool is hardhad surgery at age 18 for congenital malrotation of intestineshad labs last week [facility] Elver Salomon APRN [address], [place], [address], [place] - [facility] 02/22/2025 17:39:44
--- OUTSIDE RECORDS SUMMARY | 2025-03-12 09:10 | XMS_ITS | Clinical Summary ---
Author Organization Healthcare Address [address] [place] [address] Care Team Providers Care Tree Trimming Supervisor Name Role Phone Pedrito Chiu MD Primary Care Provider [phone] Allergies No known active allergies Social History [...] Plan of Treatment Not on file Insurance [facility] MEDICAID Care Teams Tree Trimming Supervisor Relationship Specialty Start Date End Date Pedrito Chiu MD [address] [place] [address] PCP - General 01/26/21
--- OUTSIDE RECORDS SUMMARY | 2025-03-12 09:10 | XMS_ITS | Continuity of Care Document ---
Author Organization [facility], [facility] Address [address] [place] [address] Assessment No assessment recorded. Plan of Treatment Reminders Order Date Submit Date Provider Last Modified By Organization Details Last Modified Time Details Appointments None recorded. Lab None recorded. Referral gastroente rologist referral - STAT, history of congenital malrotatio n of intestines 2024 025 ROB Nicole MD, [address], [place], [address], 5 09:31:11 Procedures None recorded. Surgeries None recorded. Imaging None recorded. Medication Orders Miralax 17 gram/dose oral powder 2024 025 [facility], [address], [id number], 17:35:34 Patient TargetsNo targets recorded. Patient InstructionsNo instructions recorded. 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 Medical Equipment [...] Available Not Available Vitals Date Recorded Body height Respiratory rate Body mass index (BMI) Body weight Body temperature Heart rate Oxygen saturation Oxygen saturation in Arterial blood by Pulse oximetry Systolic And Diastolic Provider Name and Address Organization Details Last Updated DateTime 5 182.88 cm 18 /min 23.7 kg/m2 55134.6 6 g 98 [degF] 76 /min 97 % 97 % 118/64 mm[Hg] Pratima Stears [place] - [facility] 16:52:01 Social History Question Answer Notes LastModified by Organizat ion Details LastModified Time Tobacco Smoking Status Current Every Day Smoker Pratima [place] null, [place] - [facility] 10/16/2023 10:32:30 Do You [...] Or The Highest Degree You Have Received? [id number] Information not available 10/16/2023 Have There Been Any Changes To Your Family Or Social Situation? No Information no t available 10/16/2023 What Is The Fluoride Status Of Your Home? Unknown Information not available 10/16/2023 Do You Have A Medical Power Of Cage Maker Machine? No Information not available 10/16/2023 What Was [...] anxious, or unable to sleep at night)? [id number] Information not available 10/16/2023 Do you have [...] Recorded Time Tdap 5 completed Not Available [facility] 02/22/2025 16:38:26 COVID-19, mRNA, LNP-S, PF, 100 mcg/0.5mL dose or 50 mcg/0.25mL dose 1 completed Pratima whitley, [place] - [facility] 10/16/2023 09:59:13 COVID-19, mRNA, LNP-S, PF, 100 mcg/0.5mL dose or 50 mcg/0.25mL dose 1 completed Pratima Stears null, [place] - [facility] 10/16/2023 09:59:13 Tdap 6 completed Pratima Stears [place], [place] - [facility] 10/16/2023 09:59:13 Td (adult), 2 Lf tetanus toxoid, preservative free, adsorbed 2 completed Pratima Stears [place], [place] - [facility] 10/16/2023 09:59:13 Hep B, adolescent or pediatric 2 completed Pratima Stears [place] [facility] 10/16/2023 09:59:13 Hep B, adolescent or pediatric 2 completed Pratima Ste[place] [facility] 10/16/2023 09:59:13 Hep B, adolescent or pediatric 2 completed Pratima Stears [place] - [facility] 10/16/2023 09:59:14 Past Encounters Encounter ID Performer Location Encounter Start Date Encounter Closed Date Diagnosis/Indication Diagnosis SNOMED-CT Code Diagnosis ICD10 Code Diagnosis Note [id number] Elver Salomon APRN [address] [address] 02/22/2025 16:33:11 02/22/2025 17:24:10 Chronic constipation 976182339 K59.09 Hematochezia 687639945 K 92.1 if worsen or no improvemen t go to [facility] Finding of sensation of abdomen 861052833 R10.9 Health Concerns Section Related Observation LastModified by Organization Detai ls LastModified Time None Recorded Concern Status LastModified by Organization Details LastModified Time None Recorded Payers Encounter Date Sequence Insurance Name Policy Number Policy White Covered Member ID White Member ID Guarantor Name 02/22/2025 1 [place] [id number] Italo Darby [id number] Italo Darby Notes Date Note Type Note Provider Name and Address Organization Details Recorded Time 02/22/2025 text/html 34 year old male who presents to the office today with concerns ofblood streaking in stool, abdominal pain, nausea before and after bowel movement bowel movement only once per week, stool is hardhad surgery at age 18 for congenital malrotation of intestineshad labs last week at [facility] Elver Salomon, [place] [address], [place], [address], [place] - [facility] 02/22/2025 17:39:44
[2025-03-12 09:13] LABS: Adenovirus F 40/41, stool Not Detected (NotDetected); Astrovirus Not Detected (NotDetected); Campylobacter Not Detected (NotDetected); Clostridium Difficile A/B, PCR Not Detected (NotDetected); Cryptosporidium Not Detected (NotDetected); Cyclospora Cayetanesis Not Detected (NotDetected); Entamoeba histolytica Not Detected (NotDetected); Enteroaggregative E coli Not Detected (NotDetected); Enteropathogenic E coli Not Detected (NotDetected); Enterotoxigenic E coli Not Detected (NotDetected); Giardia lamblia Not Detected (NotDetected); Norovirus Not Detected (NotDetected); Plesimonas Shigalloides, PCR Not Detected (NotDetected); Rotavirus A Not Detected (NotDetected); Salmonella, PCR Not Detected (NotDetected); Sapovirus Not Detected (NotDetected); Shiga-like toxin E coli Not Detected (NotDetected); Shigella Enterovasive E coli Not Detected (NotDetected); Vibrio Cholerae Not Detected (NotDetected); Vibrio, PCR Not Detected (NotDetected); Yersinia Entercolitica, PCR Not Detected (NotDetected)
[2025-03-12 10:15] LABS: Basophils % 0.8 % (0.1-2.0); Eosinophils # 0.2 Kmm3 (0.0-0.4); Hematocrit 38.6 % (42.0-52.0); Hemoglobin 13.1 g/dL (14.1-18.0); Immature Granulocytes # 0 10^3uL; Immature Granulocytes % 0 %; Lymphocytes # 1.7 K/mm3 (0.7-4.5); Lymphocytes % 44.4 % (10-50); Mean Corpuscular HGB Conc 33.9 g/dL (31.8-35.4); Mean Corpuscular Hemoglobin 30.7 pg (27.0-31.2); Mean Corpuscular Volume 90.4 fl (80-94); Mean Platelet Volume 11.5 fl (7.4-10.4); Monocytes # 0.3 K/mm3 (0.1-1.0); Monocytes % 8.2 % (1.7-9.3); Neutrophils # 1.6 K/mm3 (1.8-7.8); Neutrophils % 42.6 % (37.0-80.0); Nucleated Red Blood Cells # 0 10^3/uL; Nucleated Red Blood Cells % 0 %; Platelet Count 232 K/mm3 (142-424); Red Blood Count 4.27 M/mm3 (4.60-6.20); Red Cell Distribution Width 11.8 % (11.5-17.5); Red Cell Distribution Width-SD 39.1 fL; White Blood Count 3.8 K/mm3 (4.8-10.8)
[2025-03-12 10:42] LABS: INR 1.01 (0.9-1.1); Prothrombin Time 11.2 seconds (10.1-12.5)
[2025-03-13 10:22] LABS: Hep B Core Ab, Total Negative (Negative); Hep B Surface Ab, Qual Non Reactive (.); Hepatitis B Surface Antigen Negative (Negative)
[2025-03-16 02:29] LABS: ALT (SGPT) P5P 35 IU/L (0-55); Alpha 2-Macroglobulins, Qn 143 mg/dL (110-276); Apolipoprotein A-1 121 mg/dL (101-178); Bilirubin, Total 0.6 mg/dL (0.0-1.2); Fibrosis Score 0.17 (0.00-0.21); GGT 17 IU/L (0-65); Haptoglobin 49 mg/dL (17-317); Necroinflammat Activity Grade A0-No activity (.); Necroinflammat Activity Score 0.15 (0.00-0.17)
== END 2025-03-12 23:59 | disposition home or self-care (01) ==
LOC: LAB 09:08
PROVIDERS: Student in an Organized Health Care Education/Training Program; PCP Nurse Practitioner Family; Visit Provider Nurse Practitioner Family
DX: B18.2 Chronic viral hepatitis C (principal); R19.7 Diarrhea, unspecified
CPT/HCPCS: 36415; 81517; 82172; 82247; 82977; 83010; 83883; 84460; 85025; 85610; 86704; 86706; 87177; 87340; 87507

== ENCOUNTER 2025-05-11 10:51 | Day surgery (SDC) | payer BC, SELFPAY ==
--- NOTE | 2025-05-10 17:15 | P.HP_ITS ---
History of Present Illness *Admission Date: 05/10/25 *History of present illness: Mr. Darby is a 35-year-old gentleman with chronic constipation, lower abdominal pain and blood in the stool who is here for diagnostic colonoscopy. The patient does have a history of congenital malrotation of the intestines and had the JARED procedure at the [facility] in 2007. He has had constipation since then and is on Suboxone (possible opiate induced constipation). The examination is deemed medically necessary for diagnostic colonoscopy. The patient has been seen, interviewed and examined prior to the procedure by both myself and the anesthesia provider. [facility] Disclaimer: The information contained in this section may have been updated after the patient was seen, as this information can be updated by other users. Medical History Malrotation of intestine Surgical History S/P [place] procedure Family History (Updated 05/11/25 @ 11:08 by Noel Teixeira) Other No significant family history Social History (Updated 05/11/25 @ 11:30 by Jabier Murry CRNA) Smoking Status: Current every day smoker alcohol intake: current substance use type: denies use current occupational status: employed Travel in the last 8 weeks?: None Have you lived/traveled outside [place] in past 30 days?: No Contact w/someone who lives/traveled outside US past 30 days?: No Exposure to someone with infectious disease in past 14 days?: No Do you have a fever (greater than 100.4 F or 38 C)?: No Have you tested positive for COVID-19?: No Exposed to someone with COVID-19 in past 14 days?: No Do you have a sore throat?: No Do you have a cough?: No Do you have any weakness?: No Are you experiencing any nausea/vomitting?: No Do you have any diarrhea?: No Are you experiencing any unusual bleeding?: No Do you have any muscle aches/pain?: No Do you have any abdominal pain?: No Are you experiencing loss of taste or smell?: No Review of Systems Review of Systems Review of systems (narrative): Negative *Cardiovascular Comments: Negative *Gastrointestinal Comments: Negative *Genitourinary Comments: Negative *Musculoskeletal Comments: Negative *Neurologic Comments: Negative Meds Home Medications and Allergies Home Medications ?Medication ?Instructions ?Recorded ?Confirmed ?Type buprenorphine 8 mg-naloxone 2 mg 4 tab sublingual BID 02/17/25 05/11/25 History sublingual tablet New Prescriptions to Start Prescriptions: Allergies Allergy/AdvReac Type Severity Reaction Status Date / Time Penicillins (PENICILLINS) Allergy Unknown Unknown Verified 05/11/25 11:09 allergy reaction Exam *Routine HEENT Exam Head: Present normocephalic Eye: Present EOMI and PERRL ENT: Present mucous membranes moist *Routine Neck Exam Neck: Present supple *Routine Respiratory Exam Respiratory: Present CTA bilaterally *Routine Cardiovascular Exam Cardiovascular: Present RRR *Routine Abdominal Exam Abdominal: Present soft and normoactive bowel sounds; Absent tenderness *Routine Rectal Exam Rectal:: deferred *Routine Genitalia Exam Genitalia:: deferred *Routine Extremities Exam Extremities: Absent cyanosis, clubbing or edema *Routine Skin Exam Skin: Present warm; Absent rash *Routine Neurological Exam Neurological: Present alert and oriented X3 Assessment and Plan *Assessment and plan (1) Malrotation of intestine: Status: Acute Category: Medical Code(s): Q43.3 - Congenital malformations of intestinal fixation (2) Chronic constipation: Status: Acute Category: Medical Code(s): K59.09 - Other constipation (3) Bright red blood per rectum: Status: Acute Category: Medical Code(s): K62.5 - Hemorrhage of anus and rectum (4) Generalized abdominal pain: Status: Acute Category: Medical Code(s): R10.84 - Generalized abdominal pain Plan A/P: 1. Chronic constipation with generalized and lower abdominal pain, bloating, nausea and blood in stool is the preprocedural diagnosis. The patient will be anesthetized/sedated using MAC sedation. The patient has been seen and examined. Cardiac and lung assessment prior to the examination is stable. Proceed with planned diagnostic colonoscopy.
[2025-05-11 11:05] VITALS: BMI 22.4
[2025-05-11] MEDS: LACTATED RINGERS 1000ML 1,000 ML 50 ML IV (11:06)
[2025-05-11 11:11] VITALS: BP 127/86; PULSE 80; RESP 16; O2SAT 96
--- NOTE | 2025-05-11 11:29 | EXP.ANES.CKL ---
[facility] Disclaimer: The information contained in this section may have been updated after the patient was seen, as this information can be updated by other users. Medical History Malrotation of intestine Surgical History S/P [place] procedure Family History (Updated 05/11/25 @ 11:08 by Noel Teixeira) Other No significant family history Social History (Updated 05/11/25 @ 11:09 by Noel Teixeira) Smoking Status: Current every day smoker alcohol intake: current substance use type: denies use current occupational status: employed Travel in the last 8 weeks?: None [facility] Anesthesia Checklist Patient Identification Patient Identification: Arm Band Structural Data Admitted From: Home Planned Operative Procedure/s: Colonoscopy Consent for Planned Operative Procedure(s) Verified: Yes Verified Documents: Surgical Consent and History and Physical NPO Status Verified Time NPO: 09:00 (finished prep) Additional verifications Anesthesia Reactions: No Airway Assessment Mallampati Score:: Class II C-Spine Mobility Assessed: Yes TMJ Mobility Assessed: Yes Dentition: Poor Dentition Neurological Assessment Level of Consciousness: Awake, Alert and Appropriate Anesthesia Plan Anesthesia Risk discussed: Yes Anesthesia Plan: Verified ASA Class: II Anesthesia Type: MAC
--- NOTE | 2025-05-11 12:13 | HMH.PROCNOTE ---
[facility] Procedure Note Date: 05/11/25 Time: 12:30 Procedure Note:: Sigmoidoscopy procedure Report: Aborted colonoscopy Endoscopist: Srinivas Nicole II, MD Referring physician: CHULA Meier Date of Procedure: May 11, 2025 Equipment: Olympus [id number] adult colonoscope Sedation: MAC sedation Indication: Mr. Darby is a 35-year-old gentleman with chronic constipation, lower abdominal pain and blood in the stool who is here for diagnostic colonoscopy. The patient does have a history of congenital malrotation of the intestines and had the JARED procedure at the [facility] in 2007 (at the age of 18). He has had constipation since then and is on Suboxone (possible opiate induced constipation). The patient was having difficulties with constipation and would not have a bowel movement for 7 to 10 days. He did have 3 months of bright red rectal bleeding in the toilet bowl. He also noted some mucus. He had tried and failed Ex-Lax, Dulcolax and Senokot and stool softeners. He was started on combined fiber bowel regimen (MiraLAX plus Citrucel) and is doing much better with regard to his bowel function with regular bowel movements daily or every other day. He has had near resolution of his bright red rectal bleeding. He has never had a colonoscopy. The patient had completed treatment for chronic hepatitis C with Mavyret and labs subsequently showed that he failed to achieve remission. Procedure: Prior to the procedure, a history and physical exam was performed, and patient's medications and allergies were reviewed. The risks, benefits and alternatives of the sedation and procedure were discussed with the patient. All questions were answered and informed consent was obtained. The patient was brought to the procedure room. Patient identification and proposed procedure were verified by the physician and the nurse. The patient was placed in a left lateral decubitus position and the scope was passed under direct vision. Throughout the procedure, the patient's blood pressure, pulse, and oxygen saturations were monitored continuously. The colonoscopy was accomplished without difficulty. The patient tolerated the procedure well. Findings: On digital rectal examination, there was normal rectal tone. There were no external hemorrhoids. The scope was then inserted through the anal canal into the rectum and advanced to 25 cm. There was abundant amount of brown liquid stool with very inadequate bowel preparation and very poor visibility. The procedure was aborted. Impression: 1. Unprepped colon Plan: I would recommend more vigorous bowel preparation and would repeat colonoscopy.
[2025-05-11 12:32] VITALS: BP 106/63; PULSE 63; RESP 18; TEMP 37.1; O2SAT 100
[2025-05-11 12:42] VITALS: BP 109/62; PULSE 54; RESP 18; TEMP 37.1; O2SAT 99
[2025-05-11 12:52] VITALS: BP 105/69; PULSE 55; RESP 18; TEMP 37.1; O2SAT 100
[2025-05-11 13:02] VITALS: BP 110/59; PULSE 60; RESP 18; TEMP 37.1; O2SAT 100
== END 2025-05-11 13:02 | disposition home or self-care (01) ==
PROVIDERS: PCP Nurse Practitioner Family; Visit Provider Internal Medicine Gastroenterology
PROC: 0DJD8ZZ Inspection of Lower Intestinal Tract, Via Natural or Artificial Opening Endoscopic (ICD-10-PCS; CPT 45378; principal; 2025-05-11 12:30)
DX: K59.09 Other constipation (principal); Q43.3 Congenital malformations of intestinal fixation; Z53.09 Procedure and treatment not carried out because of other contraindication; Z79.891 Long term (current) use of opiate analgesic; Z88.0 Allergy status to penicillin; F17.200 Nicotine dependence, unspecified, uncomplicated
CPT/HCPCS: 45330; J2003; J2704; J7120

== ENCOUNTER 2025-07-15 10:00 | Outpatient (CLI) | payer BC, SELFPAY ==
[2025-07-15 20:13] LABS: Influenza A, PCR Not Detected (NotDetected); Influenza B, PCR Not Detected (NotDetected)
[2025-07-16 03:55] LABS: Coronavirus 19, PCR Detected (NotDetected)
--- OUTSIDE RECORDS SUMMARY | 2025-07-18 10:10 | XMS_ITS | Data Portability ---
Author Organization [facility] Address [address] [place] [address] Assessment No assessment recorded. Plan of Treatment Reminders Order Date Submit Date Provider Last Modified By Organization Details Last Modified Time Details Appointments None recorded. Lab rapid flu (A+B) 2023 024 [facility], [address] [place] [address], [id number], 4 11:20:42 rapid SARS CoV + SARS CoV 2 Ag, QL IA, respiratory specimen 2023 024 [facility], [address] [place] [address], [id number], 4 11:20:40 rapid strep group A, throat 2023 024 [facility], [address] [place] [address], [id number], 4 11:20:40 Referral gastroenter ologist referral - STAT, history of congenital malrotation of intestines 2024 025 FRANCES Nicole MD, [address], [place], [address], 5 17:45:19 Procedures None recorded. Surgeries None recorded. Imaging None recorded. Medication Orders prednisone 20 mg tablet 2024 025 FRANCES Garcia [facility], [address], [id number], 5 05:01:39 Miralax 17 gram/dose oral powder 2024 025 [facility], [address], [id number], 5 16:53:10 ceftriaxone 1 gram solution for injection 2023 024 [facility] Not available 16:47:06 clindamycin HCl 300 mg capsule 2023 025 [facility], [address], [id number], 5 16:58:59 Tamiflu 75 mg capsule 2023 024 [id number], [address], [id number], 4 10:04:08 Patient TargetsNo targets recorded. 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, history of congenital malrotation of intestines Referring Physician: Elver Saolmon, Family Medicine, Encounter Date: 02/22/2025 Results Created Date Observation Date Name Description Value Unit Range Abnormal Flag Note LastModifiedBy Organization Detail LastModifiedTime 10/16/1910/16/2023 rapid strep group A, throa t Strep negati ve Not Available [address], [address], 10/16/2023 10:01:15 10/16/19 24 10/16/2023 rapid strep group A, throa t Culture No Not Available [address], [address], 10/16/2023 10:01:15 10/16/19 24 10/16/2023 rapid SARS CoV + SARS CoV 2 Ag, QL IA, respi rator y speci men SARS CoV antigen Negati ve Not Available [address], [address], 10/16/2023 10:01:05 10/16/19 24 10/16/2023 rapid flu (A+B) Flu positi ve Not Available [address], [address], 10/16/2023 10:00:46 10/16/19 24 10/16/2023 rapid flu (A+B) Type B Not Available [address], [address], 10/16/2023 10:00:46 Result Notes None recorded. Problems Name Problem SNOMED Code Status Onset Date Resolution Date Notes Provider Name and Address Organization Details Recorded Time Congenital malrotation of intestine 29673357 Active 2024 intestio nal, surgery at age 18 [place] - [facility] 5 16:56:09 Chronic hepatitis C 594444812 Active 2024 [place]ST[place]O Stein - [facility] 5 17:56:18 Problem Notes None recorded. Medical Equipment None Reported. Allergies No known drug allergies Medications Name Sig Start Date Stop Date Status Note LastModified by Organization Details LastModified Time Miralax 17 gram/dose oral powder Take 17 g every day by oral route for 14 days. 04/28 completed Not Available Not Available Not Available promethazin e-DM 6.25 mg-15 mg/5 mL oral [...] completed Not Available Not Available Not Available prednisone 20 mg tablet Take 1 tablet twice a day by oral route for 5 days. 05/10 completed Not Available Not Available Not Available [...] TO 6 HOURS NEEDED FOR COLD SYMPTOMS 04/28 completed Not Available Not Available Not Available doxycycline hyclate 100 mg tablet TAKE 1 TABLET BY MOUTH 2 TIMES A DAY 04/28 completed Not Available Not Available Not Available [...] Details Last Updated DateTime 4 97.9 [degF] 57554.3 3 g 72 /min 98 % 98 % 18 /min 22.5 kg/m2 182.88 cm 124/76 mm[Hg] Pratima Epps [place] - [facility] 4 10:27:16 Date Recorded Body height Respiratory rate Body mass index (BMI) Body weight Body temperature Heart rate Oxygen saturation Oxygen saturation in Arterial blood by Pulse oximetry Systolic And Diastolic Provider Name and Address Organization Details Last Updated DateTime 5 182.88 cm 18 /min 23.7 kg/m2 19459.6 6 g 98 [degF] 76 /min 97 % 97 % 118/64 mm[Hg] Pratima Epps [place] - [facility] 5 16:52:01 Date Recorded Body height Body mass index (BMI) Body weight Heart rate Oxygen saturation Oxygen saturation in Arterial blood by Pulse oximetry Respiratory rate Pain severity - 0-10 verbal numeric rating [Score] - Reported Body temperature Systolic And Diastolic Provider Name and Address Organization Details Last Updated DateTime 5 182.88 cm 23.1 kg/m2 88553.1 g 89 /min 98 % 98 % 18 /min 0 98.1 [degF] 122/72 mm[Hg] Charito Dyer [facility] 5 16:54:46 Date Recorded Body height Body mass index (BMI) Body weight Body temperature Heart rate Oxygen saturation Oxygen saturation in Arterial blood by Pulse oximetry Respiratory rate Pain severity - 0-10 verbal numeric rating [Score] - Reported Systolic And Diastolic Provider Name and Address Organization Details Last Updated DateTime 4 182.88 cm 22.7 kg/m2 41411.6 3 g 98 [degF] 61 /min 99 % 99 % 20 /min 5 110/70 mm[Hg] Charito Dyer [facility] 4 10:08:24 Social History Question Answer Notes LastModified by Organizat ion Details LastModified Time Tobacco Smoking Status Current Every Day Smoker Pratima Epps [facility] 10/16/2023 10:32:30 Do You Have An [...] Or The Highest Degree You Have Received? [id number] Information not available 10/16/2023 Have There Been Any Changes To Your Family Or Social Situation? No Information no t available 10/16/2023 What Is The Fluoride Status Of Your Home? Unknown Information not available 10/16/2023 Do You Have A Medical Power Of Special Tester? No Information not available 10/16/2023 What Was [...] not available 10/16/2023 Are you able to walk independently without assistance or assistive devices? YESWOREST Information not available 10/16/2023 Do you have difficulty doing errands alone? No Information not available 10/16/2023 Are you able to care for yourself independently? Yes Information not available 10/16/2023 What is your occupation? [employer] Information not available 10/16/2023 Do you have difficulty dressing, bathing, grooming, or toileting? No Information not available 10/16/2023 What is your exercise level? None Information not available 10/16/2023 Mental Status Question Answer Note LastModified by Organizat ion Details LastModified Time Do you feel stressed (tense, restless, nervous, or anxious, or unable to sleep at night)? [id number] Information not available 10/16/2023 Do you have [...] e and Address Organization Details Recorded Time Tdap 5 completed Not Available [facility] 04/28/2025 16:34:39 COVID-19, mRNA, LNP-S, PF, 100 mcg/0.5mL dose [...] free, adsorbed 2 completed Pratima Stears null, [place] - [facility] 10/16/2023 09:59:13 Hep B, adolescent or pediatric 2 completed Pratima Stears null, [place] - [facility] 10/16/2023 09:59:13 Hep B, adolescent or pediatric 2 completed Pratima Mich null, [place] - [facility] 10/16/2023 09:59:13 Hep B, adolescent or pediatric 2 completed Pratima Mich angi, [place] - [facility] 10/16/2023 09:59:14 Past Encounters Encounter ID Performer Location Encounter Start Date Encounter Closed Date Diagnosis/Indication Diagnosis SNOMED-CT Code Diagnosis ICD10 Code Diagnosis IMO Codes Diagnosis Note [id number] Elver Salomon PROTEIN SCIENTIST [address] [address] 10/16/2023 09:48:50 10/16/2023 11:17:54 Influenza caused by Influenza B virus 61458532 J10.1 no sign of a bacterial infection. likely viral. viruses can take 7-14 days to run their course. nasal saline and bulb syringe to remove nasal drainage to help with congestion . monitor temp. Tylenol or Motrin as needed for pain or fever. encourage fluids, water, Gatorade, power aide, Pedialyte if infant/tod dler/child warm salt water gargles warm fluids sore throat lozenges sleep elevated humidifier /vaporizer follow up immediatel y for new or worsening symptoms or no noticeable improvemen t over the next 48-72 hours [id number] Elver Salomon APRN [address] [address] 06/22/2024 09:57:11 06/22/2024 10:25:02 Dental abscess 897542164 K04.7 follow up with dentist [facility] [id number] Elver Salomon APRN [address] [address] 02/22/2025 16:33:11 02/22/2025 17:24:10 Chronic constipation 076737447 K59.09 789105 Hematochezia 713813819 K 92.1 7673 if worsen or no improvemen t go to ed [facility] Finding of sensation of abdomen 527731817 R10.9 [id number] Elver Salomon PROTEIN SCIENTIST [place] [id number] 04/28/2025 16:28:04 04/28/2025 17:06:09 Allergic contact dermatitis 796177345 L23.9 [id number] benadryl as neededster oidsif worsen or no improvemen t return Health Concerns Section Related Observation LastModified by Organization Detai ls LastModified Time None Recorded Concern Status LastModified by Organization Details LastModified Time None Recorded Advance Directives Directive N: Payers Insurance Date Sequence Insurance Name Policy Number Policy White Covered Member ID White Member ID Guarantor Name 04/27/2025 [id number] Italo Romeroe [id number] Italo Darby 06/29/2025 1 [place] [id number] Italo Romeroe [id number] Italo Darby 02/22/2025 1 [employer] Italo Darby [id number] Italo Darby 02/22/2025 2 [facility] PL[facility]-[place] ([place]PLAC[place] - [place] Italo Nuñez Earlyemiliae [id number] Italo roberto Notes Date Note Type Note Provider Name and Address Organization Details Recorded Time 10/16/2023 text/html ROS as noted in the HPI 33 year old male who presents to the office today with concerns ofcough, congestion, body aches, headache, sore throat. father has covid Elver Salomon APRN [address], [place], [address], [place] - [facility] 10/16/2023 11:23:25 06/22/2024 text/html ROS as noted in the HPI 34 yr old male presents for facial swelling related to a dental abscess on the left bottom incisor. The toothache started yesterday and the swelling started this morning when he woke up. He doesn't have a dentist right now. He is trying to get insurance to get the rest of his teeth pulled. Elver Salomon APRN [address], [place], [address], [facility] - [facility] 06/22/2024 10:24:53 02/22/2025 text/html 34 year old male who presents to the office today with concerns ofblood streaking in stool, abdominal pain, nausea before and after bowel movement bowel movement only once per week, stool is hardhad surgery at age 18 for congenital malrotation of intestineshad [facility] Elver Salomon APRN [address], [place], [address], [place] - [facility] 02/22/2025 17:39:44 04/28/2025 text/html ROS as noted in the HPI 35 yr old male presents for a rash/bug bites to upper and lower extremities.He works in [employer] and grassy areas. Bites have been there for about 3 weeks. Elver Salomon, [place] [address], [place], [address], [place] - [facility] 04/28/2025 17:05:57
--- OUTSIDE RECORDS SUMMARY | 2025-07-18 10:10 | XMS_ITS | Clinical Summary ---
Author Organization Healthcare Address [address] [place] [address] Care Team Providers Care Craniologist Name Role Phone Pedrito Chiu MD Primary Care Provider [phone] Allergies No known active allergies Social History [...] Plan of Treatment Not on file Insurance [facility] MEDICAID Care Teams Craniologist Relationship Specialty Start Date End Date Pedrito Chiu MD [address] [place] [address] PCP - General 01/26/21
--- OUTSIDE RECORDS SUMMARY | 2025-07-18 10:10 | XMS_ITS | Clinical Summary ---
[facility] [address] [place] [address] Care Team Providers Care Microfilm Duplicating Unit Supervisor Name Role Phone Gaviota Mora APRN Primary Care Provider [phone] Allergies No known active allergies Medications ofloxacin (FLOXIN) 0.3 % otic solutionIndicati ons:Acute otitis externa of right ear, unspecified type Administer 5 drops into ear(s) as directed by provider Daily. 5 mL 2 Active sulfamethoxazole -trimethoprim (Bactrim DS) 800-160 MG per tabletIndication s:Acute otitis externa of right ear, unspecified type Take 1 tablet by mouth 2 (Two) Times a Day. 14 tablet 2 Active benzonatate (TESSALON) 200 MG capsuleIndicatio ns:Viral URI with cough Take 1 capsule by mouth 3 (Three) Times a Day As Needed for Cough. 30 capsule 2 Active promethazine-dex tromethorphan (PROMETHAZINE-DM ) 6.25-15 MG/5ML syrupIndications :Viral URI with cough Take 5 mL by mouth At Night As Needed for Cough. 90 mL 2 Active methylPREDNISolo ne (MEDROL) 4 MG dose packIndications: Viral URI with cough Take as directed on package instructions. 21 tablet 2 Active Family History Relation Name Status Comments Father Alive Mother Alive Social History Tobacco Use Types Packs/Day Years Used Date Smoking Tobacco: Former Smokeless Tobacco: Current Snuff Tobacco Cessation:Ready to Q uit: No; Counseling Given: No Alcohol Use Standard Drinks/Week Comments Yes 0 (1 standard drink = 0.6 oz pur e alcohol) SOCIALLY Abuse Screen Answer Date Recorded Unsafe at Home or Work/School Not on file Feels Threatened by Someone? Not on file 08/2023 Does Anyone Keep You from Co ntacting Others or Doint Things Outside the Home? Not on file 06/26/2023 Physical Sign of Abuse Present Not on file 1 Housing Stability Answer Date Recorded Current Living Arrangements Not on file 06/15 Potentially Unsafe Housing Conditions Not on diane e 06/26/2023 Family and Community Support Answer Ajith e Recorded Help with Day-to-Day Activities Not on file 06/26/2023 Lonely or Isolated Not on file 06/26/2023 Employment Answer Date Recorded Do you want help finding or keeping work or a dominick b? Not on file 06/26/2023 Disabilities Answer Date Recorded Concentrating, Remembering, or Making Decisions Difficulty Not on file 06/26/2023 Doing Errands Independently Difficulty Not on fi le 06/26/2023 Education Answer Date Recorded Help with school or training? Not on file Preferred Language Not on file 06/26/2023 Sex and Gender Information Value Date Recorded Sex Assigned at Not on file Legal Sex Male 12:57 PM EDT Gender Identity Not on file Sexual Orientation Not on file Last Filed Vital Signs Vital Sign Reading Time Taken Comments Blood Pressure 123/83 08/06/2022 2:56 PM EST Pulse 80 08/06/2022 2:56 PM EST Temperature 36.8 C (98.2 F) 08/06/2022 2:56 PM EST Respiratory Rate 14 08/06/2022 2:56 PM EST Oxygen Saturation 95% 08/06/2022 2:56 PM EST Inhaled Oxygen Concentration - - Weight 86.2 kg (190 lb) 03/29/2022 4:50 PM EDT Height 185.4 cm (6' 1 ) 03/29/2022 4:50 PM EDT Body Mass Index 25.07 03/29/2022 4:50 PM EDT Plan of Treatment Health Maintenance Due Date Last Done Comments ANNUAL PHYSICAL 1990 HEPATITIS C SCREENING 1990 TDAP/TD VACCINES (1 - Tdap) 2009 INFLUENZA VACCINE 04/15/2025 Pneumococcal Vaccine 0-49 Aged Out No longer eligible based on patient's age to complete this topic Insurance [facility] Care Teams Microfilm Duplicating Unit Supervisor Relationship Specialty Start Date End Date Gaviota Mora APRN PCP - General Nurse Practitioner 06/13/20
== END 2025-07-15 23:59 ==
LOC: LAB.DROPOF 07-18 10:00
PROVIDERS: PCP Nurse Practitioner Family; Visit Provider Nurse Practitioner
DX: J06.9 Acute upper respiratory infection, unspecified (principal); J02.9 Acute pharyngitis, unspecified
CPT/HCPCS: 87070; 87077; 87631

== ENCOUNTER 2025-08-31 14:10 | Outpatient (CLI) | payer BC, SELFPAY ==
--- OUTSIDE RECORDS SUMMARY | 2025-08-31 15:28 | XMS_ITS | Clinical Summary ---
Author Organization Healthcare Address [address] [place] [address] Care Team Providers Care Qa Automation Engineer Name Role Phone Pedrito Chiu MD Primary Care Provider [phone] Allergies No known active allergies Social History [...] Plan of Treatment Not on file Insurance [facility] MEDICAID Care Teams Qa Automation Engineer Relationship Specialty Start Date End Date Pedrito Chiu MD [address] [place] [address] PCP - General 01/26/21
--- OUTSIDE RECORDS SUMMARY | 2025-08-31 15:28 | XMS_ITS | Clinical Summary ---
[facility] [address] [place] [address] Care Team Providers Care Agriculture Instructor Name Role Phone Gaviota Mora APRN Primary Care Provider [phone] Allergies No known active allergies Medications ofloxacin [...] patient's age to complete this topic Insurance [facility] Care Teams Agriculture Instructor Relationship Specialty Start Date End Date Gaviota Mora APRN PCP - General Nurse Practitioner 06/13/20
[2025-08-31 15:53] LABS: Alanine Aminotransferase 17 U/L (12-78); Albumin Level 4.8 g/dl (3.5-5.0); Albumin/Globulin Ratio 2.0 (1.1-1.8); Alkaline Phosphatase 58 U/L (38-126); Anion Gap 9.9 mEq/L (5-15); Aspartate Amino Transferase 26 U/L (17-59); Bilirubin,Total 0.7 mg/dl (0.2-1.3); Blood Urea Nitrogen 22 mg/dl (9-20); Calcium 9.6 mg/dl (8.4-10.2); Carbon Dioxide 31 mmol/L (22.0-30.0); Chloride 103 mmol/L (98-107); Creatinine,Serum 1.10 mg/dl (0.66-1.25); Estimated Glomerular Filt Rate 76 ml/min (>60); GFR (African American) 92 ML/MIN (>60); Globulin 2.4 g/dL (1.3-3.2); Glucose 72 mg/dl (74-100); Potassium 4.9 mmoL/L (3.5-5.1); Sodium 139 mmol/L (136-145); Total Protein,Serum 7.2 g/dl (6.3-8.2)
== END 2025-08-31 23:59 | disposition home or self-care (01) ==
LOC: LAB 14:11
PROVIDERS: PCP Nurse Practitioner Family; Visit Provider Nurse Practitioner Family
DX: B18.2 Chronic viral hepatitis C (principal)
CPT/HCPCS: 36415; 80053; 87522